=== PATIENT | female | born 1935 | race Caucasian/White ===

== ENCOUNTER → 2017-10-03 | Outpatient (CLI) | payer MEDICARE, OTHER ==
[~2017-10-03] MED LIST: ASPIR 8181 MG PO; IBUPROFEN 200200 M1 PO; NORVASC5 MG PO; PRINIVIL20 MG PO; ZOCOR20 MG PO
== END ==
LOC: M.RAD 09:49
DX: Z12.31 Encounter for screening mammogram for malignant neoplasm of breast (principal)

== ENCOUNTER → 2021-04-19 | Outpatient (CLI) | payer MEDICARE, OTHER | LOC: M.RAD 14:30 | PROVIDERS: ATTEND Family Medicine | DX: Z13.820 Encounter for screening for osteoporosis (principal); I65.23 Occlusion and stenosis of bilateral carotid arteries; M85.88 Other specified disorders of bone density and structure, other site; I77.9 Disorder of arteries and arterioles, unspecified; M81.0 Age-related osteoporosis without current pathological fracture ==